=== PATIENT | male | born 1990 | race Caucasian/White ===

== ENCOUNTER 2019-03-30 17:58 | Emergency (ER) | payer OTHER, SELFPAY ==
--- NOTE | ~2019-03-30 | XR_ITS ---
[XR ribs LT 2V w CXR 2V ] INDICATION: Left lateral rib pain TECHNIQUE: Frontal projection of the upper left ribs, frontal projection of the lower left ribs, obli que projection of all the left ribs, frontal inspiratory chest x-ray for interpretation. FINDINGS: There are nondisplaced left rib fractures involving the left 10th and 11th ribs. No pneumot horax. Heart size normal. Lung parenchyma is normal.. There are no soft tissue abnormality seen. Th e lungs are clear. IMPRESSION: 1: Nondisplaced left 10th and 11th rib fractures. Reviewed, dictated and finalized at location A. [facility]
[2019-03-30 18:29] VITALS: BP 176/98; PULSE 92; RESP 20; TEMP 36.7; O2SAT 99
--- NOTE | 2019-03-30 18:52 | ED.BACK ---
HPI - Back Pain/Injury General Chief Complaint: Back Pain/Injury Stated Complaint: side pain Time Seen by Provider: 03/30/19 18:52 Source: patient and RN notes reviewed Mode of arrival: ambulatory Limitations: no limitations History of Present Illness HPI Narrative: This is a 37 years old male presented office for evaluation of left ribs pain since yesterday. Described as sharp. He woke up with pain and heard a pop when he coughed. He also reported hurts to take a deep breath. Pain is worse with position changes. Denies direct trauma or injury. Denies history of broken ribs in the past. Related Data Allergies Allergy/AdvReac Type Severity Reaction Status Date / Time No Known Allergies Allergy Verified 03/30/19 18:45 Review of Systems Review of Systems: Narrative: CONSTITUTIONAL: Denies fever ENT: Denies congestion CARDIOVASCULAR: Denies chest pain. Reports left side pain GASTROINTESTINAL: Denies abdominal pain, nausea, vomiting GENITOURINARY: Denies urinary symptoms or discharge SKIN: Denies rash MUSCULOSKELETAL: Denies acute back pain NEUROLOGIC: Denies lightheaded Exam Narrative: Exam Narrative: GENERAL: This is a well-nourished, well-developed patient, in no apparent distress. EYES:Sclera clear/white. Vision is grossly intact. EARS: External ears normal, auditory canals clear and without drainage, TMs normal without perforation. Hearing grossly intact. NOSE: External nose normal with no obvious nasal discharge, nares without redness, no rhinorrhea. THROAT: Mucous membranes moist, posterior pharynx clear. NECK: Neck supple, non-tender without lymphadenopathy, masses or thyromegaly. CARDIOVASCULAR: Regular rate and rhythm without murmurs, gallops, or rubs. Left below breast ribs tenderness with palpation. No obvious sign of ecchymosis or deformity. Chest rise equal. RESPIRATORY: Clear to auscultation. Breath sounds equal bilaterally. No wheezes, rales, or rhonchi. GASTROINTESTINAL: Abdomen soft, non-tender, nondistended. Bowel sounds are active. No hepato-splenomegaly, or palpable masses. No guarding. SKIN:left abdominal noted old rash from his shingle lesion back in Jan 2019. NEURO: awake, alert, and oriented to person, place and time. There were no obvious focal neurologic abnormalities. Steady gait Butler Coma Scale Eye Opening: Spontaneous 4 Butler Coma Scale Motor: Obeys Commands 6 Markos Coma Scale Verbal: Oriented 5 Course Vital Signs Vital signs: Vital Signs Temperature 98.1 F 03/30/19 18:29 Pulse Rate 92 03/30/19 18:29 Respiratory Rate 20 03/30/19 18:29 Blood Pressure 176/98 H 03/30/19 18:29 Pulse Oximetry 99 03/30/19 18:29 Temperature 98.1 F 03/30/19 18:29 Pulse Rate 92 03/30/19 18:29 Respiratory Rate 20 03/30/19 18:29 Blood Pressure 176/98 H 03/30/19 18:29 Pulse Oximetry 99 03/30/19 18:29 MDM - Back Pain/Injury MDM Narrative Medical decision making narrative: Discharge instructions reviewed with patient, as well as provided in writing per nursing staff. The instructions also include specific and strict return/GO TO THE ER as well as f/u information. All questions have been answered, and the patient deny any further questions with discharge and discharge plan. Differential Diagnosis Differential diagnosis: Likely other (Costochondritis, pleurisy, rib fracture, kidney stone) Imaging Data Attestation: I personally reviewed and interpreted this imaging study as follows: Critical Care Time Critical Care Time Critical Care Time: No Discharge Plan Discharge Clinical Impression: Elevated BP without diagnosis of hypertension Fracture of ribs, multiple, closed Qualifiers: Encounter type: initial encounter Laterality: left Qualified Code(s): S22.42XA - Multiple fractures of ribs, left side, initial encounter for closed fracture Patient Disposition: Home, Self-Care Condition: Stable Instructions: Antibiotic Form, Rib Fracture (ED) Additional Ins
== END 2019-03-30 19:45 | disposition home or self-care (01) ==
PROVIDERS: Emergency Provider Nurse Practitioner
DX: S22.42XA Multiple fractures of ribs, left side, initial encounter for closed fracture (principal); X58.XXXA Exposure to other specified factors, initial encounter; R03.0 Elevated blood-pressure reading, without diagnosis of hypertension
CPT/HCPCS: 71045; 71101; 99203; G0463